=== PATIENT | female | born 1960 | race Caucasian/White ===

== ENCOUNTER → 2025-05-21 10:33 | Outpatient (REF) | payer MEDICARE, BC, SELFPAY ==
[2025-05-21 12:57] LABS: HDL Cholesterol 48 mg/dl; LDL Cholesterol, Calculated 112 mg/dl; Very Low Density Lipoprotein 12 mg/dl (0-30)
== END ==
LOC: REG 10:33
PROVIDERS: ATTENDING PHYSICIAN Family Medicine
DX: E78.2 Mixed hyperlipidemia (principal)
CPT/HCPCS: 36415; 80061; 84443

== ENCOUNTER 2025-06-03 12:32 | Inpatient (IN) | payer MEDICARE, BC, SELFPAY ==
--- NOTE | 2025-05-11 10:04 | CM ---
Addendum entered by Jasmine Holland RN 05/11/25 10:20:
Demographics: Lives in two story home with
Living situation: Lives independently, works
Support Person Post Operatively:
History of:
VN: No
SNF: No
Outpatient: Outpatient appointment made at [facility] for 06/08
Has patient purchased required equipment: No, encouraged patient to contact [facility]
PCP: Dr. Kirk
Pharmacy: [facility]
Post Operative Discharge Plan: Home with , outpatient PT
Original Note:
CM left message for CM assessment.
[2025-05-18 14:29] VITALS: BMI 26.0
[2025-05-18 14:37] LABS: Hematocrit 45.7 % (37.0-47.0); Hemoglobin 14.9 g/dL (12.0-16.0); Mean Corp Hgb Conc. 32.6 g/dL (33.0-37.0); Mean Corpuscular Volume 89.4 fL (81.0-99.0); Platelet Count 223 10^3/uL (130-400); Red Cell Dist. Width 12.0 % (11.5-14.5)
[2025-05-18 14:48] VITALS: BMI 26.0
[2025-05-18 15:11] LABS: ALT (SGPT) 22 U/L (0-35); AST (SGOT) 26 U/L (14-36); Albumin 4.8 g/dl (3.5-5.0); Alkaline Phosphatase 60 U/L (38-126); Blood Urea Nitrogen 24 mg/dl (7-17); Calcium 9.8 mg/dl (8.4-10.2); Carbon Dioxide 26 mmol/L (22-30); Chloride 105 mmol/L (98-107); Estimated Creatinine Clearance 68 ml/min; Glucose 82 mg/dl (70-99); Potassium 4.2 mmol/L (3.5-5.1); Sodium 140 mmol/L (135-145); Total Protein 7.0 g/dl (6.3-8.2); eGFR > 60.00
[2025-05-19 07:51] LABS: Glycohemoglobin (HgbA1c) 5.2 % (4.0-5.6)
[2025-06-03] VITALS (9 sets, daily range): BP systolic 106–131; BP diastolic 51–77
[2025-06-03] MEDS: TYLENOL 650 MG PO ×3 (12:53→23:18)
[2025-06-03] MEDS: CELEBREX 200 MG PO (12:53)
[2025-06-03] MEDS: NORMOSOL-R/PLASMALYTE-A 1000 IV ×2 (13:17→18:23)
--- NOTE | 2025-06-03 14:04 | W.PN.ORTHO ---
Today's Communication / Plan
-
d/c when stable
Assessment
.
Dressing:
Clean, dry and intact.
Assessment:
Prolonged QT-avoid QT prolonging agents
Plan
.
Surgery / Date: L GILBERT Araya 06/03/25
DVT Prophylaxis: Aspirin
Activity:
Out of bed.
PT/OT
Discharge Plan: Home w/ Outpatient PT
Vital Signs and Labs
.
Vital Signs and Labs:
Lab Results
05/18/25 13:32
05/18/25 13:32
Temp Pulse Resp BP Pulse Ox
98.3 F 65 16 131/71 98
06/03/25 12:42 06/03/25 12:42 06/03/25 12:42 06/03/25 12:42 06/03/25 12:42
--- NOTE | 2025-06-03 14:05 | W.DS.TRANS ---
DC Summary - Legal Research Analyst
-
Discharge Instructions:
Sleep Apnea Risk Low
Discharge Diagnosis/Procedures L TKA Dr. Araya 06/03/25
Diet As tolerated
Activity With Walker
Driving Restrictions No driving
Bathing Restrictions OK to Shower
Other Services PT
Instructions:
Stand-Alone Forms: Total Hip/Knee Replacement D/C
Changes to Home Medications: Yes
Discharge Medications:
DC Medications w/original date entered in [employer]
celecoxib 200 mg capsule (Celebrex) 200 mg PO DAILY #14 caps 05/18/25
dexamethasone 4 mg tablet 4 mg PO BID #5 tabs 05/18/25
famotidine 20 mg tablet (Pepcid) 20 mg PO HS #30 tabs 05/18/25
gabapentin 300 mg capsule 300 mg PO HS neuropathic pain/sleep #10 caps 05/18/25
mupirocin 2 % topical ointment 1 applic intranasal BID #1 tube 05/18/25
oxycodone 5 mg tablet 5 - 10 mg (1 - 2 x 5 mg) PO Q6H PRN moderate-severe pain #30 tabs 05/18/25
prochlorperazine maleate 5 mg tablet (Compazine) 5 mg PO TID PRN nausea and vomiting #30 tabs 05/18/25
acetaminophen 325 mg tablet (Tylenol) 650 mg (2 x 325 mg) PO QID #1 tab 06/03/25
aspirin 325 mg tablet 325 mg PO DAILY blood clot prevention #1 tab 06/03/25
docusate sodium 100 mg capsule (Colace) 100 mg PO BID stool softner #1 cap 06/03/25
magnesium hydroxide 400 mg/5 mL oral suspension (Milk of Magnesia) 30 ml PO HS PRN constipation #1 mL 06/03/25
sennosides 8.6 mg tablet (Senokot) 17.2 mg (2 x 8.6 mg) PO BID laxative #2 tabs 06/03/25
Home Medication Changes
dexamethasone 4 mg tablet 4 mg PO BID #5 tabs 05/18/25
famotidine 20 mg tablet (Pepcid) 20 mg PO HS #30 tabs 05/18/25
gabapentin 300 mg capsule 300 mg PO HS neuropathic pain/sleep #10 caps 05/18/25
mupirocin 2 % topical ointment 1 applic intranasal BID #1 tube 05/18/25
oxycodone 5 mg tablet 5 - 10 mg (1 - 2 x 5 mg) PO Q6H PRN moderate-severe pain #30 tabs 05/18/25
prochlorperazine maleate 5 mg tablet (Compazine) 5 mg PO TID PRN nausea and vomiting #30 tabs 05/18/25
acetaminophen 325 mg tablet (Tylenol) 650 mg (2 x 325 mg) PO QID #1 tab 06/03/25
aspirin 325 mg tablet 325 mg PO DAILY blood clot prevention #1 tab 06/03/25
docusate sodium 100 mg capsule (Colace) 100 mg PO BID stool softner #1 cap 06/03/25
magnesium hydroxide 400 mg/5 mL oral suspension (Milk of Magnesia) 30 ml PO HS PRN constipation #1 mL 06/03/25
sennosides 8.6 mg tablet (Senokot) 17.2 mg (2 x 8.6 mg) PO BID laxative #2 tabs 06/03/25
Pending Results: No
[2025-06-03] MEDS: TYLENOL PO (16:00)
--- NOTE | 2025-06-03 17:15 | OR.RPT ---
Operative Report
Operative Report
Orthopaedic Surgery Operative Note
DATE OF OPERATION: 06/03/2025
PREOPERATIVE DIAGNOSES: Osteoarthritis, left knee.
POSTOPERATIVE DIAGNOSES: Osteoarthritis, left knee.
OPERATION PERFORMED: Left total knee arthroplasty.
SURGEON: Morris Araya MD
ASSISTANTS: Tanvir Metcalf PA-C who assisted with patient and limb positioning and retraction
ANESTHESIA: Spinal
COMPLICATIONS: None.
ESTIMATED BLOOD LOSS: 20mL
DRAINS: None
TOURNIQUET TIME: 45 minutes.
IMPLANTS:
- Puma Persona CR Femur, size 8
- Puma Persona tibia base plate, size D
- Puma Persona medial constrained articular surface, 12 mm
INDICATIONS: The patient presented to my office with debilitating left knee pain due to osteoarthritis. We reviewed the natural history of this problem, as well as the risks, benefits, and alternatives of various treatment options. The patient
exhausted all nonoperative treatment options and wished to proceed with knee replacement surgery. The patient understood the risks which included, but were not limited to, bleeding, infection, failure to relieve pain, more pain than preop, damage to
blood vessels and nerves, need for reoperation, mechanical failure of the implants, wound healing problems, stiffness, instability, blood clot, pulmonary embolism, myocardial infarction, pneumonia, arrhythmia, CVA, and . The patient accepted
these risks and wished to proceed. All questions were answered, and informed consent was obtained.
PROCEDURE IN DETAIL: The patient was identified in the preoperative holding area. The left knee was identified as the operative site. The patient was taken in the operating room and placed in a supine position on the operating table. Spinal
anesthesia was performed. IV antibiotics and tranexamic acid were administered. A bump was placed under the left hemipelvis. A well-padded tourniquet was placed on the proximal thigh. All bony prominences were well padded. The left lower extremity
was prepped and draped in the usual sterile fashion.
We performed a surgical time-out. An interarticular block was performed with local anesthetic with epinephrine. The limb was exsanguinated with an Esmarch bandage, then the tourniquet was inflated to 250 mmHg. A midline skin incision was made
followed by a medial parapatellar arthrotomy. A subperiosteal peel was performed on the medial tibia. I excised part of the infrapatellar fat pad to improve our visualization as well as tissue over anterior femur. The patella was everted and the
knee was flexed. I excised the remnants of the anterior and posterior cruciate ligaments as well as tibial and femoral osteophytes with rongeurs.
The knee was flexed, and the extramedullary tibial cutting guide was aligned. Hill was aligned at neutral, rotation was centered on the tibial tubercle, and coronal alignment was aligned with the mechanical axis of the tibia and center of the ankle
joint. The cut height was 10mm off the lateral tibia joint surface. The guide was secured into place. The MCL and LCL were protected. The tibia surface was cut. The cut surface was inspected after removal to ensure appropriate height and slope based
on the preoperative plan. The cut was checked with a drop yao. It was centered nicely at the ankle.
A drill was used to open the femoral canal. The intramedullary distal femoral cutting guide was inserted into the femur. This was set at 5 degrees +0. This was secured into place with three pins. The cut level was checked with an rony wing. The
distal femur was cut through the cutting guide. The IM guide was reinserted to double check that the level of resection was flush and in appropriate alignment.
[place]�s line and the transepicondylar axis were marked on the femur. The femoral sizing guide was applied to the anterior femur. Pins were inserted, and the 4-in-1 cutting guide was applied and secured into place. The rotation was compared to
[place]�s line, the transepicondylar axis, and the neutral tibia cut and was found to be appropriate. The width was checked and found to be appropriate and lateralized on the femur. The anterior, posterior, and chamfur cuts were made. A lamina
blacktop spreader was used to open the flexion gap, and posterior osteophytes were removed with a curved osteotome. The remnant medial and lateral meniscus were also removed. I prophylactically cauterized the lateral geniculate arteries. A 10mm spacer block
was applied to the flexion gap and was noted to be balanced medially and laterally. The knee was extended, and the block showed symmetric to extension and flexion gaps.
The tibia was exposed and sized. Rotation was set in line with the tibial tubercle and congruent with the femur. The trial was secured into place with two pins. The trial femur was impacted into place, and a trial articular surface was placed. The
knee was taken through range of motion and noted to be stable throughout the arc of motion without gaping or excess tension. The patella tracked centrally throughout the arc of motion without need for further releases. No full thickness cartilage
defects.
The trials were removed. The tibia keel was prepared with the punch and the drill. The bone surfaces were irrigated with sterile saline and dried. The cement was mixed in a vacuum mixer. Cement gun was used to apply cement to the tibial surface and
the undersurface of the tibial implant. Cement was pressurized into the tibial canal and tibia surface. The tibial component was impacted into place. Excess cement was removed. Cement was applied to the femoral surface and the femoral component. The
femoral component was impacted into place, and excess cement removed. A trial articular surface was inserted, and the knee was extended while the cement polymerized. The tourniquet was let down, and meticulous hemostasis was achieved. Dilute
betadine was poured into the wound and allowed to soak for 3 minutes. The knee was irrigated with copious normal saline.
Once the cement was polymerized, the trial articular surface was removed. Any excess cement was removed. The knee was trialed, and the final articular surface was selected and inserted into the tibial locking mechanism. The knee was reduced. A fresh
drape was applied to the surgical field.
The arthrotomy was closed with 0-PDS. Once closed, an interarticular block was performed with local anesthetic with epi. The deep dermal layer was closed with 2-0 PDS, and the subcuticular skin was closed with 3-0 monocryl. A Liquiband XL dressing
was applied to the skin in full flexion. Once this was completely dry, a sterile waterproof dressing was applied.
The anesthesia team performed an adductor canal block in the OR. The patient awoke from anesthesia without any difficulties. The sponge and instrument counts were correct x2 at the end of the case.
Inder Araya MD
[2025-06-03] MEDS: VANCOCIN 200 IV (17:21)
[2025-06-03] MEDS: ROXICODONE 5 MG PO (17:29)
[2025-06-03] MEDS: ASPIRIN 325 MG PO (18:27)
[2025-06-03] MEDS: TORADOL 15 MG IV (18:28)
[2025-06-03] MEDS: DECADRON 4 MG IV (18:28)
--- NOTE | 2025-06-03 19:36 | PTCARENOTE ---
pt admitted to 2S rm 2105 @1800 from PACU. pt arrived awake and alert via bed. at bedside. oriented to room, call maza and plan of care with verbalized understanding. admission database and assessment completed as documented. denies
pain. assisted to order dinner. care ongoing.
[2025-06-03] MEDS: SENOKOT 17.2 MG PO (20:30)
[2025-06-03] MEDS: BACTROBAN 2% OINTMENT 1 APPLIC NASAL (20:30)
[2025-06-03] MEDS: COLACE 100 MG PO (20:35)
[2025-06-03] MEDS: ANCEF 5 IV (22:00)
[2025-06-03] MEDS: NEURONTIN 300 MG PO (22:00)
[2025-06-04] VITALS (7 sets, daily range): BP systolic 113–137; BP diastolic 52–75; PULSE 57–61; O2SAT 96–98
[2025-06-04] MEDS: TYLENOL 650 MG PO ×3 (04:30→12:29)
[2025-06-04] MEDS: ANCEF 5 IV (05:20)
[2025-06-04] MEDS: DECADRON 4 MG IV (05:25)
[2025-06-04] MEDS: TORADOL 15 MG IV (05:25)
[2025-06-04] MEDS: ASPIRIN 325 MG PO (08:03)
[2025-06-04] MEDS: CELEBREX 200 MG PO (08:04)
[2025-06-04] MEDS: BACTROBAN 2% OINTMENT 1 APPLIC NASAL (08:04)
[2025-06-04] MEDS: COLACE 100 MG PO (08:05)
[2025-06-04] MEDS: SENOKOT 17.2 MG PO (08:05)
[2025-06-04] MEDS: ROXICODONE 5 MG PO (08:22)
--- NOTE | 2025-06-04 11:23 | W.PN.ORTHO ---
Today's Communication / Plan
-
d/c
Assessment
.
Distal Motor Intact: Yes
Dressing:
Clean, dry and intact.
Assessment:
Prolonged QT-avoid QT prolonging agents
?dizziness-no orthostasis but pt states she has this at baseline--BP low normal-Midodrine x1 dose and minimize opioids
Plan
.
Surgery / Date: L GILBERT Araya 06/03/25
DVT Prophylaxis: Aspirin
Activity:
Out of bed.
PT/OT
Discharge Plan: Home w/ Outpatient PT
Subjective
.
.:
Patient feels 'funny'-? dizziness
Vital Signs and Labs
.
Vital Signs and Labs:
Lab Results
05/18/25 13:32
05/18/25 13:32
Temp Pulse Resp BP Pulse Ox
97.6 F 49 16 113/52 96
06/04/25 07:55 06/04/25 07:55 06/04/25 07:55 06/04/25 07:55 06/04/25 07:55
Non-invasive Hgb result: 14.7
Physical Exam
-
HEENT: No pallor, cyanosis, or jaundice. Throat clear.
NECK: Supple. No JVD.
RESPIRATORY: Lungs clear to auscultation.
CVS: S1, S2 normal. RRR.� No murmur, rub or gallop.
ABDOMEN: Soft, non-tender. No distension. BS+/normal.
EXTREMITIES: strength equal, no calf pain with palpation
DISTRIBUTION ACCOUNTING CLERK: AOx3. No focal deficits. television picture tube rebuilder grossly intact
--- NOTE | 2025-06-04 11:36 | PTCARENOTE ---
Assumed care of patient at 0715. Pt was medicated for left knee pain prior to therapy at 0922. After therapy, pt stated she was feeling 'off'. Orthostatic vital signs were obtained. Administered Midodrine per DEC. Care is ongoing, will continue to
monitor.
== END 2025-06-04 16:44 | disposition home or self-care (01) | DRG 470 ==
LOC: 2 SOUTH 12:32
PROVIDERS: ADMITTING PHYSICIAN Orthopaedic Surgery; FAMILY PHYSICIAN Family Medicine
PROC: 0SRD0J9 Replacement of Left Knee Joint with Synthetic Substitute, Cemented, Open Approach (ICD-10-PCS; 2025-06-03)
DX: M17.12 Unilateral primary osteoarthritis, left knee (principal); E78.5 Hyperlipidemia, unspecified; I45.10 Unspecified right bundle-branch block; J45.909 Unspecified asthma, uncomplicated; M50.30 Other cervical disc degeneration, unspecified cervical region; Z87.440 Personal history of urinary (tract) infections
CPT/HCPCS: 36415; 73560; 80053; 83036; 85027; 87070; 93005; 97110; 97116; 97162; 97166; 97530; 97535; C1713; C1776

== ENCOUNTER 2025-06-11 11:22 | Outpatient (RCR) | payer MEDICARE, BC, SELFPAY | END 2025-06-11 23:59 | disposition home or self-care (01) | LOC: RPT 11:22 | PROVIDERS: ATTENDING PHYSICIAN Orthopaedic Surgery; FAMILY PHYSICIAN Family Medicine | DX: Z47.1 Aftercare following joint replacement surgery (principal); Z73.6 Limitation of activities due to disability; Z96.652 Presence of left artificial knee joint | CPT/HCPCS: 97010; 97110; 97161; 97530 ==

== ENCOUNTER 2025-07-09 11:48 | Outpatient (RCR) | payer MEDICARE, BC, SELFPAY | END 2025-07-09 23:59 | disposition home or self-care (01) | LOC: RPT 11:48 | PROVIDERS: ATTENDING PHYSICIAN Orthopaedic Surgery; FAMILY PHYSICIAN Family Medicine | DX: Z47.1 Aftercare following joint replacement surgery (principal); Z73.6 Limitation of activities due to disability; R26.89 Other abnormalities of gait and mobility; M62.81 Muscle weakness (generalized); M25.562 Pain in left knee; M17.12 Unilateral primary osteoarthritis, left knee; Z96.652 Presence of left artificial knee joint | CPT/HCPCS: 97010; 97110; 97140; 97530 ==

== ENCOUNTER 2025-08-10 09:40 | Outpatient (RCR) | payer MEDICARE, BC, SELFPAY | END 2025-08-10 23:59 | disposition home or self-care (01) | LOC: RPT 09:40 | PROVIDERS: ATTENDING PHYSICIAN Orthopaedic Surgery; FAMILY PHYSICIAN Family Medicine | DX: Z47.1 Aftercare following joint replacement surgery (principal); Z73.6 Limitation of activities due to disability; R26.89 Other abnormalities of gait and mobility; M62.81 Muscle weakness (generalized); M25.562 Pain in left knee; M17.12 Unilateral primary osteoarthritis, left knee; Z96.652 Presence of left artificial knee joint | CPT/HCPCS: 97010; 97110; 97530 ==

== ENCOUNTER 2025-09-07 14:13 | Outpatient (RCR) | payer MEDICARE, BC, SELFPAY | END 2025-09-08 07:18 | disposition home or self-care (01) | LOC: RPT 14:13 | PROVIDERS: ATTENDING PHYSICIAN Orthopaedic Surgery; FAMILY PHYSICIAN Family Medicine | DX: Z47.1 Aftercare following joint replacement surgery (principal); Z73.6 Limitation of activities due to disability; R26.89 Other abnormalities of gait and mobility; M62.81 Muscle weakness (generalized); M25.562 Pain in left knee; M17.12 Unilateral primary osteoarthritis, left knee; Z96.652 Presence of left artificial knee joint | CPT/HCPCS: 97110; 97530 ==